=== PATIENT | female | born 1975 | race Caucasian/White ===

== ENCOUNTER 2021-10-01 09:35 | Emergency (ER) | payer SELFPAY ==
[~2021-10-01] VITALS: Ht 170.2 cm; Wt 61.4 kg
[2021-10-01 10:02] VITALS: BP 146/89
== END 2021-10-01 12:43 | disposition left against medical advice (07) ==
LOC: ER 09:36
DX: R00.0 Tachycardia, unspecified (principal); R42 Dizziness and giddiness; I10 Essential (primary) hypertension; Z53.21 Procedure and treatment not carried out due to patient leaving prior to being seen by health care provider
CPT/HCPCS: 93005

== ENCOUNTER 2021-10-02 21:06 | Emergency (ER) | payer BC ==
[~2021-10-02] VITALS: Ht 170.2 cm; Wt 61.4 kg
[2021-10-02 22:24] LABS: BASOPHILS % (AUTO) 0.7 % (0-1); EOSINOPHILS # (AUTO) 0.1 X10'3 (0-0.9); EOSINOPHILS % (AUTO) 1.9 % (0-6); HEMATOCRIT 40.7 % (35.0-45.0); HEMOGLOBIN 13.7 g/dl (12.0-16.0); LYMPHOCYTES # (AUTO) 2.2 X10'3 (1.1-4.8); LYMPHOCYTES % (AUTO) 32.7 % (21-51); MEAN CORPUSCULAR HGB CONC 33.7 g/dL (33.0-36.5); MEAN CORPUSCULAR VOLUME 91.9 FL (78-98); MEAN PLATELET VOLUME 9.3 FL (7.4-10.4); MONOCYTES # (AUTO) 0.5 X10'3 (0-0.9); MONOCYTES % (AUTO) 8.2 % (2-12); NEUTROPHILS # (AUTO) 3.8 X10'3 (1.8-7.7); NEUTROPHILS % (AUTO) 56.5 % (42-75); PLATELET COUNT 250 X10'3 (140-440); RED BLOOD COUNT 4.43 X10'6 (4.20-5.60); RED CELL DISTRIBUTION WIDTH 13.3 % (11.5-14.5); WHITE BLOOD COUNT 6.7 X10'3 (4.5-11.0)
[2021-10-02 22:40] LABS: ALANINE AMINOTRANSFERASE 22 U/L (12-78); ALKALINE PHOSPHATASE 70 IU/L (46-116); ANION GAP 7 (8-16); ASPARTATE AMINO TRANSFERASE 17 U/L (10-37); BILIRUBIN,TOTAL 0.2 MG/DL (0.1-1.0); BLOOD UREA NITROGEN 22 MG/DL (7-18); CALCIUM 8.9 MG/DL (8.5-10.1); CHLORIDE 105 MMOL/L (99-107); GLUCOSE 131 MG/DL (70-104); POTASSIUM 3.6 MMOL/L (3.5-5.1); SODIUM 139 MMOL/L (135-145); TOTAL CARBON DIOXIDE 26.6 MMOL/L (24-32); eGFR 53 ML/MIN
[2021-10-03] MEDS ORDERED: LISI20TA28 PO (02:46)
[2021-10-03 03:01] VITALS: BP 128/80
== END 2021-10-03 03:04 | disposition home or self-care (01) ==
LOC: ER 21:07
DX: I10 Essential (primary) hypertension (principal); C75.0 Malignant neoplasm of parathyroid gland; Z88.2 Allergy status to sulfonamides; Z88.1 Allergy status to other antibiotic agents; Z79.899 Other long term (current) drug therapy
CPT/HCPCS: 36415; 71045; 80053; 83880; 84484; 85025; 93005; 99285

== ENCOUNTER 2024-06-17 08:47 | Emergency (ER) | payer BC ==
[~2024-06-17] VITALS: Ht 170.2 cm; Wt 63.6 kg
[2024-06-17] MEDS ORDERED: EPIN0.3P3 IM (09:08)
--- NOTE | 2024-06-17 09:08 | Physician Documentation ---
History of Present Illness ~ Chief Complaint: Allergic Reaction Stated Complaint: ALLERGIC REACTION Time Seen by MD: 09:02 HPI This is a very pleasant 48-year-old female who presents for evaluation of allergic reaction that she experienced while eating breakfast burrito. No new food. She had all the ingredients in the past. She broke out in rash on her face, chest, bilateral upper extremities. No particular palliating or aggravating factors were elicited with the patient. She took 25 mg of diphenhydramine at home with a some improvement of her symptoms. She does report had heaviness. Denies any shortness a breath. Denies any nausea and vomiting diarrhea. Denies abdominal pain. No prior history of food allergies. No concern for tobacco, alcohol or illicit substances use. Medication Reconciliation Allergies: Coded Allergies: sulfamethoxazole (Verified Allergy, Intermediate, 06/17/24) RAPID HR trimethoprim (Verified Allergy, Intermediate, 06/17/24) RAPID HR levofloxacin (Verified Allergy, Unknown, 06/17/24) RASH Scheduled Epinephrine (Epipen 2-Emmanuel), 1 SYR IM ONCE Past Medical History Past Medical History: Hypertension, *CANCER* Past Surgical History: other Drug Use: none Lives In: Home Review of Systems ROS 10 point review of systems was performed and unless noted above in HPI is negative for acute process/complaint. Physical Exam Vital Signs: Temperature: 97.2, Heart Rate: 56, Respiratory Rate: 14, BP: 183/98, Pulse Oximetry: 100, Weight: 63.640 Physical Exam GENERAL: Awake, alert, oriented, GCS 15, no apparent distress, non-toxic appearing, answers questions, follows commands appropriately. HEENT: Atraumatic, normocephalic, pupils equal, extraocular muscles intact, sclerae anicteric, mucus membranes moist, oropharynx is clear, no stridor. NECK: supple, full active range of motion, trachea midline, no thyromegaly, no lymphadenopathy, no JVD. CARDIOVASCULAR: regular rate/rhythm, no murmurs/gallops/rubs, Pulses are 2+ in all extremities and symmetric. Capillary refill less than 2 seconds. PULMONARY: Nonlabored, good air movement ,no respiratory distress, speaking in full sentences, clear to auscultation bilaterally, no wheezing, no ronchi, no rales, no accessory muscle use. GASTROINTESTINAL: Soft, non-tender, non-distended, normal active bowel sounds, no organomegaly, no pulsatile masses, no CVA tenderness. NEUROLOGIC: Lucid with normal mental status. Normal facial symmetry. Moves all extremities symmetrically and with purpose. No truncal ataxia. Speech is fluid without evidence of dysarthria or aphasia, no focal deficits appreciated. MUSCULOSKELETAL: There is full range of motion of all extremities. There is no joint pain or joint swelling or joint erythema. There is no muscle pain or tenderness or swelling. EXTREMITIES: warm, well-perfused, no cyanosis, no clubbing, no edema, no acute deformities. Skin: warm, dry, no rashes or lesions, no jaundice, no petechiae orpurpura. No ecchymosis. PSYCHIATRIC: Normal affect, normal insight, normal concentration. Focused exam: [] Posterior pharynx is patent, no stridor, no drooling, no hot potato voice, no floor of the mouth elevation, no swelling, uvula midline. Progress Results/Orders Results/Orders Completed Orders - PASCUAL PADILLA DO Diphenhydramine Inj (Benadryl Inj.) (06/17/24 09:05) Dexamethasone Inj (Decadron 10mg/Ml Inj) (06/17/24 09:03) Famotidine/Pf Iv Inj (Pepcid Iv Inj) (06/17/24 09:05) Medications Received in ER Medications (Trade) Dose Ordered Sig/Lilliana Route PRN Reason Start Time Stop Time Status Last Admin Dose Admin (Benadryl inj.) 50 mg ONCE ONCE IV 06/17/24 09:05 06/17/24 09:06 DC 06/17/24 09:25 50 MG (Decadron 10mg/ ml inj) 10 mg ONCE STAT IV 06/17/24 09:03 06/17/24 09:04 DC 06/17/24 09:25 10 MG (Pepcid IV inj) 20 mg ONCE ONCE IV 06/17/24 09:05 06/17/24 09:06 DC 06/17/24 09:25 20 MG Vital Signs 06/17/24 06/17/24 06/17/24 08:51 09:05 09:57 Temp 97.2 Pulse 56 67 Resp 14 18 18 B/P (MAP) 183/98 175/103 (127) Pulse Ox 100 100 O2 Flow Rate 0 Medical Decision Making Findings Facility Status: ED Holds, RME process The plan was discussed with the patient, who demonstrates clear understanding of the plan and is in agreement with the plan unless otherwise noted in the chart. All questions have been answered, all concerns were addressed unless otherwise documented. I was available throughout their ED stay for frequent reassessment and questions. Differential Diagnoses (considered and possible or likely): [Allergic reaction, less likely anaphylaxis, unlikely anaphylactic shock. Source is unclear.] ??Differential Diagnoses (considered and unlikely, not requiring evaluation currently): [See above. Clinically not consistent with a cellulitis.] MDM Data Please see [facility] for the following: Independent Historians and external Records Review. Historian: [Patient] Independent Historians: ?[None] Medication Management: [Reviewed medication list] Social History and determinants: [Reviewed] Please see the body of the note for the following: Any independent interpretations of ECG, imaging studies. All vitals signs/haemodynamics, ordered tests were independently reviewed and interpreted by myself. Nursing triage complaint and vitals reviewed, additional nursing notes were reviewed as available and I agree unless otherwise noted or documented in contradiction in the chart Vital Signs: Independently reviewed Labs: Independently interpreted Imaging: Independently interpreted Old Medical Records: Independently reviewed, see HPI for relevant summary and information Pulse Oximetry: [100%] interpreted as [normal on room air] by me Additionally notably showing: [Hemodynamically stable] Tests considered but not ordered include: [Hematologic workup and imaging has been considered but does not appear to be necessary given clinical nature of diagnosis] Social Determinants of Health Impact: Patient was evaluated in [facility], [facility] [place] to healthcare due to below par ratio of patient to medical providers. [] Comorbid Conditions Impacting Present Evaluation and Care/Treatment: [None] Management Discussions with other Healthcare Providers: [Non] Treatment and Disposition Medication Management (Given or considered): [Allergy cocktail including Benadryl, dexamethasone, Pepcid. Epinephrine has been considerably does not appear to be necessary given the lack of anaphylactic symptoms/2nd system involvement]. See EMR for details Consideration for Hospitalization/Escalation/Deescalation of Care: Admission for observation has been considered, [however the patient is able to tolerate p.o., their symptoms are controlled, they are able to rely on oral medications, and their chief complaint/diagnosis can be managed on outpatient basis.] ?ED Course:?[Patient improved.] ?Shared decision making:?[Patient is hemodynamically stable for discharge home with follow with their primary care provider. [ ] Specific and cautious return precautions provided and discussed with full understanding. Any incidental findings were also discussed and follow up recommendations given. [] All questions answered. Patient/family were able to verbalize back return precautions. Patient/family agree to plan. Copies of imaging and laboratory studies were provided.] Code status:?FULL Please see the full Electronic Medical Record for full details of nursing documentation, medications list, other records of complete past medical history and conditions, vital signs, laboratory studies, and any radiologic study interpretations by radiologists. Portions of this note were completed using [employer] dictation software and as a result there may exist minor errors in spelling. I have reviewed elements of past family and social history and agree as included in note. Departure Disposition: HOME / SELF CARE / HOMELESS Impression: Primary Impression: Acute allergic reaction Condition: Improved Discharge Instructions: Food Allergy Referrals: NO PRIMARY CARE PROVIDER (PCP) Prescriptions Epinephrine (Epipen 2-Emmanuel) 0.3 Mg/0.3 Ml Auto.injct 1 SYR IM ONCE for 1 Day, #1 PKT 0 Refills Prov: PASCUAL PADILLA DO 06/17/24 Education Educated: Patient Educated regarding: diagnosis, treatment, prognosis, need for follow up Signature Scribe Signature: No scribe Attestation: This note accurately reflects clinical decisions, work performed by myself, DO RANDY Conte NICHOLAS M DO June 17, 2024 09:08
[2024-06-17] MEDS: dexamethasone sod phosphate 10mg/ml inj IV STA (09:25)
[2024-06-17] MEDS: famotidine/PF 10 mg/ml inj IV ONE (09:25)
[2024-06-17] MEDS: diphenhydrAMINE 50 mg/ml inj IV ONE (09:25)
[2024-06-17 10:46] VITALS: BP 170/94; PULSE 68; RESP 18; TEMP 97.2; O2SAT 99
== END 2024-06-17 10:45 | disposition home or self-care (01) ==
LOC: ER 08:48
DX: T78.1XXA Other adverse food reactions, not elsewhere classified, initial encounter (principal); I10 Essential (primary) hypertension; Z88.2 Allergy status to sulfonamides; Z88.1 Allergy status to other antibiotic agents; Z79.899 Other long term (current) drug therapy; X58.XXXA Exposure to other specified factors, initial encounter
CPT/HCPCS: 96374; 96375; 99284; J1100; J1200; J3490